=== PATIENT | female | born 1965 | race Two or more races ===

== ENCOUNTER 2016-07-17 09:46 | Day surgery (SDC) | payer MEDICAID ==
[2016-07-03 17:07] VITALS: BMI 35.2
[~2016-07-17] VITALS: Ht 157.5 cm; Wt 86.5 kg
[~2016-07-17 09:46] MED LIST: CEFAZOLIN 2 GM/50 ML (PMX) 50 ML IVPB ONE; SOD CHLORIDE 0.9% 1,000 ML IV ONE; SOD CHLORIDE 0.9% 1,000 ML IV SCH
[2016-07-17 10:46] VITALS: Ht 157.5 cm; Wt 86.5 kg
[2016-07-17 10:57] VITALS: BP 110/56; PULSE 65; RESP 16
[2016-07-17] MEDS ORDERED: MIDAZOLAM 1 MG/ML 2 ML INJ ONE (11:57)
[2016-07-17] MEDS ORDERED: PROPOFOL 20 ML ONE (11:57)
[2016-07-17] MEDS ORDERED: ROCURONIUM 50 MG INJ ONE (11:57)
[2016-07-17] MEDS ORDERED: DEXAMETHASONE 4 MG/ML 1 ML INJ ONE (11:57)
[2016-07-17] MEDS ORDERED: ONDANSETRON 4 MG INJ ONE (11:57)
[2016-07-17] MEDS ORDERED: FENTAnyl 50 MCG/ML VIAL ONE (11:57)
[2016-07-17] MEDS ORDERED: CEFAZOLIN 1 GM INJ ONE (12:01)
[2016-07-17] MEDS ORDERED: SUCCINYLCHOLINE CHLORIDE 100 MG/5 ML SYG IV ONE (12:01)
[2016-07-17] MEDS ORDERED: MEPERIDINE 25 MG INJ IV PRN (12:30)
[2016-07-17] MEDS ORDERED: KETOROLAC 30 MG INJ IV ONE (12:30)
[2016-07-17] MEDS ORDERED: MIDAZOLAM 1 MG/ML 2 ML INJ IV PRN (12:30)
[2016-07-17] MEDS ORDERED: FENTAnyl 50 MCG/ML VIAL IV PRN (12:30)
[2016-07-17] MEDS ORDERED: HYDROmorphONE (0.2 MG/ML) 10ML SYG IV PRN ×3 (12:30)
[2016-07-17] MEDS ORDERED: ONDANSETRON 4 MG INJ IV PRN (12:30)
[2016-07-17] MEDS ORDERED: HYDROCODONE/APAP (7.5/325) TAB PO PRN (13:30)
[2016-07-17 13:51] VITALS: BP 138/87; PULSE 77; RESP 18
[2016-07-17 13:54] VITALS: BP 149/74; PULSE 76; RESP 18
[2016-07-17 13:59] VITALS: BP 139/85; PULSE 74; RESP 18
[2016-07-17 14:04] VITALS: BP 135/66; RESP 18
[2016-07-17 14:15] VITALS: BP 135/81; PULSE 62; RESP 20
--- NOTE | 2016-07-17 14:18 | OPR ---
DATE OF OPERATION: 07/17/2016 PREOPERATIVE DIAGNOSIS: Right breast lesion, core biopsy positive for papilloma and need for excisi onal papilloma and need for excisional biopsy. POSTOPERATIVE DIAGNOSIS: Right breast lesion. Core biopsy positive for papilloma and need for exci sional papilloma. OPERATION PERFORMED: Right needle-directed excisional breast biopsy. ANESTHESIA: General. ANESTHESIOLOGIST: Rajiv Polanco MD SURGEON: Dwight Clay MD INDUSTRIAL HEALTH ENGINEER: Damir Ribeiro MD INDICATIONS FOR PROCEDURE: The patient is a 51-year-old female who was found on screening mammograp hy to have a suspicious lesion in the right breast. Subsequent biopsy revealed an intraductal papil katheryn and full excisional biopsy was recommended. Patient consented and was scheduled for surgery. DESCRIPTION OF PROCEDURE: On the morning of surgery, the patient presented to [facility] where she underwent localization of the lesion performed by attending radiologis Janny vázquez MD. Subsequently, she was brought to the operating theater, placed under genera l anesthesia. The right breast was prepped and draped in usual sterile fashion. A periareolar inci terri was made in the region of the localization wire from approximately the 11 o'clock through the 1 o'clock to the 4 o'clock location. Subcutaneous tissue was dissected with cautery. The skin edges were then elevated with skin hooks. Wide circumferential dissection of the breast tissue associate d with the wire took place. Specimen was removed, oriented and sent for radiographic confirmation o f capture. Capture was confirmed. Specimen was then sent for permanent pathologic analysis. The w ound was irrigated. Minimal bleeding was controlled with cautery. The skin was then reapproximated with a deep dermal layer of 4-0 Vicryl sutures in interrupted fashion, followed by final skin appro ximation with 5-0 PDS in subcuticular fashion. Benzoin and Steri-Strips were then applied. Patient tolerated procedure well. Estimated blood loss was 20 mL. There were no complications and the pat ient was transported in stable condition to the recovery room. Dictated By: DWIGHT CLAY MD TL/NTS Conf#: [id number] DID#: [id number] CC: ULISES RIBEIRO MD;*EndCC*
== END 2016-07-17 15:30 | disposition home or self-care (01) ==
LOC: SDS 09:46
PROVIDERS: ATTEND Surgery Surgical Oncology
DX: D05.11 Intraductal carcinoma in situ of right breast (principal); E11.9 Type 2 diabetes mellitus without complications; E66.9 Obesity, unspecified; Z68.34 Body mass index [BMI] 34.0-34.9, adult
CPT/HCPCS: 19120; 82962; 84703; 88307; J0330; J0690; J1100; J2250; J2405; J3010; Z7512; Z7610

== ENCOUNTER 2016-11-27 06:33 | Day surgery (SDC) | payer MEDICAID ==
[2016-11-27] VITALS (11 sets, daily range): BP systolic 90–132; BP diastolic 47–86; PULSE 52–78; RESP 14–21; Ht 157.5 cm; Wt 86.2 kg
[~2016-11-27] VITALS: Ht 157.5 cm; Wt 86.2 kg
[~2016-11-27 06:33] MED LIST changes: -SOD CHLORIDE 0.9% 1,000 ML IV ONE
[2016-11-27 07:45] LABS: ADD SCAN DIFF NO
[2016-11-27 07:49] LABS: BASOPHIL # 0.1 10^3/ul (0.0-0.1); BASOPHILS % 0.8 % (0.0-2.0); EOSINOPHILS # 0.2 10^3/ul (0.0-0.5); EOSINOPHILS % 2.5 % (0.0-7.0); LYMPHOCYTES # 2.8 10^3/ul (0.8-2.9); MEAN CORPUSCULAR HEMOGLOBIN 27.7 pg (29.0-33.0); MEAN CORPUSCULAR HGB CONC 31.7 g/dl (32.0-37.0); MEAN CORPUSCULAR VOLUME 87.2 fl (82.0-101.0); MONOCYTE # 0.5 10^3/ul (0.3-0.9); MONOCYTES % 6.4 % (0.0-11.0); NEUTROPHILS % 52.8 % (39.0-77.0); PLATELET COUNT 225 10^3/UL (140-415); RED CELL DISTRIBUTION WIDTH 13.8 % (11.5-14.5); WHITE BLOOD COUNT 7.5 10^3/ul (4.8-10.8)
[2016-11-27 08:08] LABS: INR 0.99; PROTIME 13.1 Sec (12.2-14.2)
[2016-11-27 08:09] LABS: PARTIAL THROMBOPLASTIN TIME 33.4 Sec (25.0-35.0)
[2016-11-27 08:18] LABS: ALBUMIN 4.4 g/dl (3.3-4.9); ALBUMIN/GLOBULIN RATIO 1.51; BILIRUBIN,INDIRECT 0.4 mg/dl (0-1.1); BILIRUBIN,TOTAL 0.4 mg/dl (0.2-1.3); TOTAL PROTEIN 7.3 g/dl (6.1-8.1)
[2016-11-27 08:26] LABS: CALCIUM 9.6 mg/dl (8.4-10.2); CREATININE 0.49 mg/dl (0.44-1.00); POTASSIUM 4.4 mmol/L (3.5-5.1)
[2016-11-27] MEDS ORDERED: PROPOFOL 60 ML ONE (08:38)
[2016-11-27] MEDS ORDERED: FENTAnyl 50 MCG/ML VIAL ONE ×2 (08:39→09:09)
[2016-11-27] MEDS ORDERED: MEPERIDINE 25 MG INJ IV PRN (09:00)
[2016-11-27] MEDS ORDERED: ONDANSETRON 4 MG INJ IV PRN (09:00)
[2016-11-27] MEDS ORDERED: LABETALOL HCL 20MG INJ IV PRN (09:00)
[2016-11-27] MEDS ORDERED: hydrALAzine 20 MG INJ IV PRN (09:00)
[2016-11-27] MEDS ORDERED: METOCLOPRAMIDE 10 MG INJ IV PRN (09:00)
[2016-11-27] MEDS ORDERED: EPHEDrine SULFATE 50 MG/5 ML SYG IV PRN (09:00)
[2016-11-27] MEDS ORDERED: OXYCODONE/ACETAMINOPHEN (5/325) TAB PO PRN ×2 (09:00)
[2016-11-27] MEDS ORDERED: FENTAnyl 50 MCG/ML VIAL IV PRN ×3 (09:00)
[2016-11-27] MEDS ORDERED: HYDROmorphONE (0.2 MG/ML) 10ML SYG IV PRN ×3 (09:00)
[2016-11-27] MEDS ORDERED: DIPHENHYDRAMINE 50 MG INJ IV PRN (09:00)
[2016-11-27] MEDS ORDERED: ROCURONIUM 50 MG INJ ONE (09:21)
[2016-11-27] MEDS ORDERED: NEOSTIGMINE 3 MG/3 ML SYRINGE ONE (09:21)
[2016-11-27] MEDS ORDERED: GLYCOPYRROLATE 0.4 MG INJ ONE (09:21)
--- NOTE | 2016-11-27 11:37 | RADRPT ---
PROCEDURE: XR Chest. CLINICAL INDICATION: Preop TECHNIQUE: A single AP view of the chest was obtained. COMPARISON: None. FINDINGS: No focal airspace opacification, pleural effusion or pneumothorax is seen. The cardiomediastinal si lhouette is within normal limits for size. The osseous structures are unremarkable. IMPRESSION: No radiographic evidence of acute cardiopulmonary disease. RPTAT: HH .Gloria Ambriz MD, MD Date Time Electronically viewed and signed by .Gloria Ambriz MD, on 11/27/2016 11:37 .G/
--- NOTE | 2016-11-27 16:56 | RADRPT ---
Vent Rate: 63 bpm RR Interval: 0 msec [place] Interval: 148 msec QRS Duration: 90 msec QT Interval: 462 msec QTC Interval: 472 msec P-R-T [place]: 48 - 31 - 43 degrees Normal sinus rhythm Normal ECG Electronically Signed By: Prasanth Forte [id number]
--- NOTE | 2016-12-06 08:30 | OPR ---
DATE OF OPERATION: 11/27/2016 PREOPERATIVE DIAGNOSIS: History of right breast cancer, need for re-excision, right partial mastectomy. POSTOPERATIVE DIAGNOSIS: History of right breast cancer, need for re-excision, right partial mastectomy. OPERATION PERFORMED: Right re-excision, partial mastectomy. ANESTHESIA: General. ANESTHESIOLOGIST: Dr. Argueta SURGEON: Dwight Clay MD BRICKLAYER PAVING BRICK: Alice Ribeiro MD INDICATION: The patient underwent right partial mastectomy for cancer. On final pathology, her margins were inadequate. She was counseled for the need of re-excision. She consented and was scheduled for surgery. DESCRIPTION OF PROCEDURE: The patient was brought to the operating theater and placed under general anesthesia. The right breast was prepped and draped in the usual sterile fashion. Previous surgical incisional scar was then reincised consisting of blade scalpel. Subcutaneous tissue was dissected with cautery. Skin edges were elevated with skin hooks and wide circumferential dissection of the previous biopsy cavity then took place. The specimen was then elevated, transected, oriented, and sent for permanent pathologic analysis. The wound was irrigated and minimal bleeding was controlled with cautery. The skin was reapproximated with 4-0 Vicryl sutures and interrupted deep dermal fashion, followed by final skin approximation with 5-0 PDS suture in subcuticular fashion and Benzoin and Steri- strips were then applied. The patient tolerated the procedure well. Estimated blood loss was 10 cc. There were no complications and the patient was transported in a stable condition to the recovery room where a circumferential compression dressing was applied. Dictated By: Dwight Clay MD /trey/tricia /Document#: [id number]
== END 2016-11-27 11:16 | disposition home or self-care (01) ==
LOC: SDS 06:33
PROVIDERS: ATTEND Surgery Surgical Oncology
DX: D05.11 Intraductal carcinoma in situ of right breast (principal); Z17.0 Estrogen receptor positive status [ER+]; E11.9 Type 2 diabetes mellitus without complications
CPT/HCPCS: 19301; 71010; 80053; 82962; 85025; 85610; 85730; 88307; 93005; J3010; Z7512; Z7610; J2710

== ENCOUNTER 2017-02-12 07:05 | Observation (INO) | payer MEDICAID ==
[2017-02-12] VITALS (24 sets, daily range): BP systolic 110–139; BP diastolic 54–87; PULSE 63–87; RESP 11–28; Ht 154.9 cm; Wt 87.0 kg
[~2017-02-12] VITALS: Ht 154.9 cm; Wt 87.0 kg
[~2017-02-12 07:05] MED LIST changes: -CEFAZOLIN 2 GM/50 ML (PMX) 50 ML IVPB ONE; +CEFAZOLIN 2 GM/50 ML (PMX) 50 ML IVPB SCH; +SUCCINYLCHOLINE CHLORIDE 100 MG/5 ML SYG IV ONE
[2017-02-12 08:09] LABS: BASOPHIL # 0.1 10^3/ul (0.0-0.1); BASOPHILS % 0.7 % (0.0-2.0); EOSINOPHILS # 0.2 10^3/ul (0.0-0.5); EOSINOPHILS % 2.8 % (0.0-7.0); HEMATOCRIT 40.6 % (37.0-47.0); HEMOGLOBIN 13.2 g/dl (12.0-16.0); LYMPHOCYTES # 2.2 10^3/ul (0.8-2.9); LYMPHOCYTES % 28.6 % (15.0-51.0); MEAN CORPUSCULAR HEMOGLOBIN 28.3 pg (29.0-33.0); MEAN CORPUSCULAR HGB CONC 32.5 g/dl (32.0-37.0); MEAN CORPUSCULAR VOLUME 87.1 fl (82.0-101.0); MEAN PLATELET VOLUME 11.5 fl (7.4-10.4); MONOCYTE # 0.5 10^3/ul (0.3-0.9); MONOCYTES % 6.5 % (0.0-11.0); NEUTROPHIL # 4.6 10^3/ul (1.6-7.5); NEUTROPHILS % 61.1 % (39.0-77.0); PLATELET COUNT 243 10^3/UL (140-415); RED BLOOD COUNT 4.66 10^6/ul (4.20-5.40); RED CELL DISTRIBUTION WIDTH 13.5 % (11.5-14.5); WHITE BLOOD COUNT 7.6 10^3/ul (4.8-10.8)
[2017-02-12 08:33] LABS: INR 0.95; PROTIME 12.7 Sec (12.2-14.2)
[2017-02-12 08:37] LABS: ALBUMIN 3.8 g/dl (3.3-4.9); ALBUMIN/GLOBULIN RATIO 1.18; BILIRUBIN,INDIRECT 0.6 mg/dl (0-1.1); BILIRUBIN,TOTAL 0.6 mg/dl (0.2-1.3)
[2017-02-12 08:43] LABS: CALCIUM 9.3 mg/dl (8.4-10.2); CREATININE 0.41 mg/dl (0.44-1.00); POTASSIUM 4.5 mmol/L (3.5-5.1)
[2017-02-12] MEDS ORDERED: LIDOCAINE 2% (SDV) 5 ML INJ ONE (09:03)
[2017-02-12] MEDS ORDERED: PROPOFOL 20 ML ONE (09:04)
[2017-02-12] MEDS ORDERED: MIDAZOLAM 1 MG/ML 2 ML INJ ONE (09:04)
[2017-02-12] MEDS ORDERED: CEFAZOLIN 1 GM INJ ONE (09:06)
[2017-02-12] MEDS ORDERED: FENTAnyl 50 MCG/ML VIAL ONE (09:20)
[2017-02-12] MEDS ORDERED: ONDANSETRON 4 MG INJ ONE (09:27)
[2017-02-12] MEDS ORDERED: FAMOTIDINE 20 MG INJ ONE (09:28)
--- NOTE | 2017-02-12 10:45 | SIPON ---
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 Aldo Wiggins Anesthesia: general Estimated blood loss: 10 - 50 ml's Transfusion Required none Specimen Right breast and level 1 axillary nodes Grafts/Implants none Complications none MANNIE GOMEZ MD Feb 12, 2017 10:45
[2017-02-12] MEDS ORDERED: ACETAMINOPHEN 1000MG/100ML IV 100 ML IVPB PRN (11:00)
[2017-02-12] MEDS ORDERED: ONDANSETRON 4 MG INJ IV PRN (11:00)
[2017-02-12] MEDS ORDERED: morphine 2 MG INJ IV PRN (11:00)
[2017-02-12] MEDS ORDERED: MEPERIDINE 25 MG INJ IV PRN (11:00)
[2017-02-12] MEDS ORDERED: HYDROmorphONE (0.2 MG/ML) 10ML SYG IV PRN ×2 (11:00)
[2017-02-12] MEDS ORDERED: DIPHENHYDRAMINE 50 MG INJ IV PRN (11:00)
--- NOTE | 2017-02-12 11:00 | OPR ---
DATE OF OPERATION: 02/12/2017 PREOPERATIVE DIAGNOSIS: Extensive ductal carcinoma in situ, right breast. POSTOPERATIVE DIAGNOSIS: Extensive ductal carcinoma in situ, right breast. PROCEDURE: Right modified radical mastectomy with level 1 dissection. ANESTHESIA: General. ANESTHESIOLOGIST: . SURGEON: Dwight Clay MD. BAT CARRIER: Isma Hickman MD INDICATIONS FOR PROCEDURE: The patient is a 51-year-old female, who underwent screening mammography was found to have suspicious microcalcifications. She underwent excisional biopsy, which revealed ductal carcinoma with positive margins. She had 3 additional attempts at re-excision and the margins remain positive. She then was counseled as to the need for mastectomy. She consented and was scheduled for surgery. OPERATIVE PROCEDURE: The patient was brought to the operating theater, placed under general endotracheal tube anesthesia. The right breast axillary region was prepped and draped in usual sterile fashion. A planned elliptical incision was then made with marking pen around the nipple areolar complex. It is carried out with 15 blade scalpel. Subcutaneous tissue was dissected with cautery. The skin edges were then elevated with Allis-Josafat skin clamps in sequential fashion. Using cautery, skin flaps were developed first superiorly to the clavicle, then medially to the sternal border, inferiorly to the inframammary fold and then laterally to latissimus dorsi muscle was identified throughout its course. Mastectomy then took place from medial to lateral using cautery at the border of the pectoralis major muscle. The pectoralis minor muscle was identified. Due to the extensive nature of the DCIS and the chance for invasion Dr. Clay made the decision to resect some level 1 lymph nodes. The clavipectoral fascia was incised. Blunt dissection was used to identify the long thoracic nerve, which was kept out of harm's way. Level 1 node bearing tissue was then resected EN bloc with the breast using LigaSure device. Final connective tissue attachments to the latissimus dorsi muscle were then transected with cautery. Specimen was removed, oriented, and sent for permanent pathologic analysis. The wound was irrigated. Minimal bleeding was controlled with cautery. Two number 10 flat Joel- Ferris drains were then brought through the right mid axillary line. One was cut to size and laid within the axilla. The other was laid over the pectorals major muscle. Both drains were secured in place with 2-0 nylon suture in the standard fashion and the skin was then reapproximated with skin fabricio. The patient tolerated procedure well. ESTIMATED BLOOD LOSS: Was approximately 50 mL. COMPLICATIONS: There were no complications. The patient was transported in stable condition to recovery room, where a circumferential compression dressing was applied. Dictated By: Dwight Clay MD /trey/sarbjit /Document#: [id number]
--- NOTE | 2017-02-12 13:12 | HP ---
DATE OF ADMISSION: 02/12/2017 HISTORY OF PRESENT ILLNESS: The patient is a 61-year-old female, who was found a suspicious microcalcification on screening mammography. The patient subsequently underwent excisional biopsy, which revealed ductal carcinoma with positive margins. The patient had additional attempt to re-excision, however, margin remain positive and patient was brought to the hospital and underwent a right modified radical mastectomy with level [address] Clay. Postoperatively, the patient experienced moderate pain and patient will be admitted for further evaluation and further management. PAST MEDICAL HISTORY: Positive for diabetes. The patient stated that she used to take metformin, however, currently is off metformin. PAST SURGICAL HISTORY: Status post right breast biopsy and multiple attempts at re-excision, partial mastectomy, and C- sections x2. FAMILY HISTORY: Negative for breast and ovarian cancer. SOCIAL HISTORY: Patient lives at home with her family. 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 The patient denies any tobacco use. Denies any alcohol use. Denies any illicit drug use. ALLERGIES: NO KNOWN ALLERGIES. HOME MEDICATIONS: No active prescriptions. REVIEW OF SYSTEMS: A 12 point review of system is negative unless what is mentioned in HPI. PHYSICAL EXAMINATION: GENERAL: Well-developed, well-nourished female, awake and alert. VITAL SIGNS: Temperature is 98.7, pulse is 76, blood pressure 123/75, respiratory 12, and oxygen saturation 100 percent on 3 L nasal cannula. HEENT: Head is atraumatic, normocephalic. Pupils equal, round, reactive to light and accommodation. Oral mucosa is pink and moist. NECK: Supple. No cervical lymphadenopathy. No thyromegaly. CHEST: Lungs clear bilaterally. There is no rhonchi, wheezes, rales noted. CARDIOVASCULAR: Normal S1, S2. No murmurs, gallops, clicks, or rubs noted. Chest the patient has a right breast dressing with axillary MILTON x 2. Dressing is dry, clean, and intact. ABDOMEN: Protuberant, soft, nondistended, nontender. Bowel sounds present. EXTREMITIES: No edema, clubbing, cyanosis. Pulses equal bilaterally 2 plus. SKIN: No rash. No petechiae noted. NEUROLOGICAL: Patient is awake, alert, and oriented times 3. No focal deficits noted. Motor strength is 5/5 in all extremities. LABORATORY DATA: On admission, CBC white blood cells 7.6, hemoglobin 13.2, hematocrit 40.6, and platelets 243. Chemistry: Sodium is 140, potassium 4.5, chloride 106, carbon dioxide 30, anion gap 9, BUN is 18, creatinine 0.41, glucose 116, AST 21, ALT is 34, alkaline phosphate is 107. PT 12.7, INR is 0.95, and APTT 31.0. ASSESSMENT AND PLAN: 1. 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 Continue Tylenol, and morphine p.r.n. for pain, Zofran p.r.n. for nausea. Continue postoperative antibiotics and IV fluids. Incentive spirometer every 1 hour while patient is awake. 2. History of diabetes. We will continue to monitor sugar. 3. Obesity. Continue sequential compression device for deep venous thrombosis prophylaxis. Further recommendations based on clinical course. Plan of care discussed with Dr. Nieves. Dictated By: Germania Son NP /trey/pamela /Document#: [id number]
[2017-02-12] MEDS: D5W-0.45 NACL + KCL 20 MEQ 1,000 ML IV SCH ×3 (13:23→22:20)
--- NOTE | 2017-02-12 16:37 | RADRPT ---
Vent Rate: 59 bpm RR Interval: 0 msec [place] Interval: 156 msec QRS Duration: 86 msec QT Interval: 426 msec QTC Interval: 421 msec P-R-T [place]: 38 - 17 - 34 degrees Sinus bradycardia Anterolateral infarct , age undetermined Abnormal ECG Electronically Signed By: Prasanth Forte [id number]
[2017-02-13] VITALS: BP_SYST 113; BP_SYST 125; BP_DIAS 60; BP_DIAS 65; PULSE 70; RESP 18; RESP 19
[2017-02-13 04:00] VITALS: BP 117/64; RESP 19
[2017-02-13] MEDS: D5W-0.45 NACL + KCL 20 MEQ 1,000 ML IV SCH ×3 (06:14→17:45)
[2017-02-13 08:03] VITALS: BP 114/65; RESP 18
[2017-02-13 08:37] LABS: BASOPHILS % 0.4 % (0.0-2.0); EOSINOPHILS # 0.2 10^3/ul (0.0-0.5); EOSINOPHILS % 2.1 % (0.0-7.0); HEMATOCRIT 37.8 % (37.0-47.0); HEMOGLOBIN 12.1 g/dl (12.0-16.0); LYMPHOCYTES # 2.3 10^3/ul (0.8-2.9); LYMPHOCYTES % 25.6 % (15.0-51.0); MEAN CORPUSCULAR HEMOGLOBIN 28.1 pg (29.0-33.0); MEAN CORPUSCULAR VOLUME 87.9 fl (82.0-101.0); MEAN PLATELET VOLUME 12.5 fl (7.4-10.4); MONOCYTE # 0.6 10^3/ul (0.3-0.9); MONOCYTES % 6.7 % (0.0-11.0); NEUTROPHIL # 5.9 10^3/ul (1.6-7.5); NEUTROPHILS % 64.9 % (39.0-77.0); PLATELET COUNT 207 10^3/UL (140-415); WHITE BLOOD COUNT 9.1 10^3/ul (4.8-10.8)
[2017-02-13] MEDS ORDERED: HYDROCODONE/APAP (5/325) TAB PO PRN (09:00)
[2017-02-13 09:02] LABS: CALCIUM 8.7 mg/dl (8.4-10.2); CREATININE 0.42 mg/dl (0.44-1.00)
[2017-02-13] MEDS: INSULIN ASPART [NOVOLOG] 3 ML PEN SC SCH ×3 (12:00→21:00)
--- NOTE | 2017-02-13 12:06 | PN ---
Date/Time of Note Date/Time of Note DATE: 02/13/17 TIME: 12:00 Assessment/Plan VTE Prophylaxis VTE Prophylaxis Intervention: SCD's Lines/Catheters IV Catheter Type (from Nrsg): Peripheral IV Assessment/Plan Assessment/Plan 1. 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 MILTON drain noted - per surgery - Tylenol, and morphine p.r.n. for pain, Zofran p.r.n. for nausea. - Continue postoperative antibiotics and IV fluids. - Incentive spirometer every 1 hour while patient is awake. 2. History of diabetes. - Glycemic control - We will continue to monitor sugar. 3. Obesity. - weight management - dietary consult 4. sequential compression device for deep venous thrombosis prophylaxis. Further recommendations based on clinical course. Plan of care discussed with Dr. Nieves. Subjective 24 Hr Interval Summary Free Text/Dictation afebrile, surgery follows. right breast MILTON intact.patient stated she was on Metformin, but its dcd as per her PMD, She is fu with her PMD x 2 weeks.dw staff - no new issue reported. Cardiovascular: no complaints Gastrointestinal: no complaints Genitourinary: no complaints Musculoskeletal: no complaints Exam/Review of Systems Vital Signs Vitals Vital Signs Date Time Temp Pulse Resp B/P Pulse Ox O2 Delivery O2 Flow Rate FiO2 02/13/17 08:03 98.0 70 18 114/65 95 02/13/17 00:00 Room Air 02/12/17 11:09 3.0 Intake and Output 02/12/17 02/12/17 02/13/17 15:00 23:00 07:00 Intake Total 1600 ml 2070 ml 2300 ml Output Total 101 ml 160 ml 80 ml Balance 1499 ml 1910 ml 2220 ml Exam Constitutional: alert, oriented, well developed Respiratory: clear to auscultation, normal air movement Cardiovascular: nl pulses, regular rate and rhythm Gastrointestinal: non-tender, soft Musculoskeletal: nl extremities to inspection Results Result Diagram: 02/13/17 0823 02/13/17 0730 Results 24 hrs Laboratory Tests Test 02/12/17 16:53 02/13/17 06:08 02/13/17 07:30 02/13/17 08:23 Bedside Glucose 127 Lab Scanned Report LAB Sodium Level 139 Potassium Level 4.0 Chloride Level 109 Carbon Dioxide Level 27 Anion Gap 7 L Blood Urea Nitrogen 7 # Creatinine 0.42 L Glucose Level 119 Calcium Level 8.7 White Blood Count 9.1 Red Blood Count 4.30 Hemoglobin 12.1 Hematocrit 37.8 Mean Corpuscular Volume 87.9 Mean Corpuscular Hemoglobin 28.1 L Mean Corpuscular Hemoglobin Concent 32.0 Red Cell Distribution Width 14.0 Platelet Count 207 Mean Platelet Volume 12.5 H Neutrophils % 64.9 Lymphocytes % 25.6 Monocytes % 6.7 Eosinophils % 2.1 Basophils % 0.4 Nucleated Red Blood Cells % 0.0 Neutrophils # 5.9 Lymphocytes # 2.3 Monocytes # 0.6 Eosinophils # 0.2 Basophils # 0.0 Nucleated Red Blood Cells # 0.0 Medications Medications Current Medications Ondansetron HCl 4 mg 4 mg Q6H PRN IV NAUSEA AND/OR VOMITING; Start 02/12/17 at 11:00 Potassium Chloride/Dextrose/ Sod Cl (D5-1/2ns + KCl 20 Meq) 1,000 ml @ 125 mls/ hr Q8H IV Last administered on 02/13/17 06:14; Admin Dose 125 MLS/HR; Start at 10:45 Morphine Sulfate 2 mg 2 mg Q1H PRN IV PAIN; Start 02/12/17 at 11:00 Acetaminophen (Ofirmev 1000mg/ 100ml Iv) 100 ml @ 400 mls/hr Q6H PRN IVPB PAIN Last administered on 02/12/17 14:21; Admin Dose 400 MLS/HR; Start at 11:00 Acetaminophen/ Hydrocodone Bitart ([place] (5/325)) 1 tab Q4H PRN PO PAIN; Start 02/13/17 at 09:00 GONZALES CASTORENA Feb 13, 2017 12:06
[2017-02-13] MEDS ORDERED: GLUCOSE GEL 15 GRAM TUBE PO PRN ×2 (12:30)
[2017-02-13] MEDS ORDERED: GLUCOSE GEL 15 GRAM TUBE BUCCAL PRN (12:30)
[2017-02-13] MEDS ORDERED: DEXTROSE 50% 50 ML SYRINGE IV PRN ×2 (12:30)
[2017-02-13] MEDS ORDERED: GLUCAGON 1 MG INJ IM PRN (12:30)
[2017-02-13 14:00] VITALS: BP 123/63; RESP 20
[2017-02-13 20:19] VITALS: BP 120/61; RESP 18
[2017-02-14] MEDS: D5W-0.45 NACL + KCL 20 MEQ 1,000 ML IV SCH ×3 (00:17→10:45)
[2017-02-14] MEDS ORDERED: ACCU-CHEK XX SCH ×2 (02:00)
[2017-02-14 02:58] VITALS: BP 117/59; RESP 17
[2017-02-14 06:20] LABS: BASOPHILS % 0.5 % (0.0-2.0); EOSINOPHILS # 0.3 10^3/ul (0.0-0.5); EOSINOPHILS % 3.2 % (0.0-7.0); HEMATOCRIT 37.5 % (37.0-47.0); HEMOGLOBIN 12.1 g/dl (12.0-16.0); LYMPHOCYTES # 2.3 10^3/ul (0.8-2.9); LYMPHOCYTES % 28.8 % (15.0-51.0); MEAN CORPUSCULAR HEMOGLOBIN 28.4 pg (29.0-33.0); MEAN CORPUSCULAR HGB CONC 32.3 g/dl (32.0-37.0); MEAN PLATELET VOLUME 11.8 fl (7.4-10.4); MONOCYTE # 0.6 10^3/ul (0.3-0.9); MONOCYTES % 7.3 % (0.0-11.0); NEUTROPHIL # 4.7 10^3/ul (1.6-7.5); NEUTROPHILS % 59.9 % (39.0-77.0); PLATELET COUNT 213 10^3/UL (140-415); RED BLOOD COUNT 4.26 10^6/ul (4.20-5.40); RED CELL DISTRIBUTION WIDTH 13.6 % (11.5-14.5); WHITE BLOOD COUNT 7.8 10^3/ul (4.8-10.8)
[2017-02-14 06:51] LABS: CALCIUM 8.7 mg/dl (8.4-10.2); CREATININE 0.43 mg/dl (0.44-1.00); POTASSIUM 4.1 mmol/L (3.5-5.1)
[2017-02-14] MEDS: INSULIN ASPART [NOVOLOG] 3 ML PEN SC SCH ×2 (08:00→12:00)
[2017-02-14 08:02] VITALS: BP 110/63; RESP 18
--- NOTE | 2017-02-14 11:46 | PN ---
Date/Time of Note Date/Time of Note DATE: 02/14/17 TIME: 11:43 Assessment/Plan VTE Prophylaxis VTE Prophylaxis Intervention: SCD's Lines/Catheters IV Catheter Type (from Nrsg): Peripheral IV Assessment/Plan Assessment/Plan 1. 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 MILTON drain noted - per surgery - Tylenol, and morphine p.r.n. for pain, Zofran p.r.n. for nausea. - Continue postoperative antibiotics and IV fluids. - Incentive spirometer every 1 hour while patient is awake. 2. History of diabetes. - Glycemic control - We will continue to monitor sugar. 3. Obesity. - weight management - dietary consult 4. sequential compression device for deep venous thrombosis prophylaxis. Further recommendations based on clinical course. Plan of care discussed with Dr. Nieves. Subjective 24 Hr Interval Summary Free Text/Dictation afebrile, surgery follows. right breast MILTON intact- still draining .; plan to dc am when cleared by surgery; dw staff Respiratory: no complaints Cardiovascular: no complaints Genitourinary: no complaints Musculoskeletal: no complaints Exam/Review of Systems Vital Signs Vitals Vital Signs Date Time Temp Pulse Resp B/P Pulse Ox O2 Delivery O2 Flow Rate FiO2 02/14/17 08:02 98.4 67 18 110/63 96 02/13/17 00:00 Room Air 02/12/17 11:09 3.0 Intake and Output 02/13/17 02/13/17 02/14/17 15:00 23:00 07:00 Intake Total 950 ml 1870 ml Output Total 80 ml Balance 870 ml 1870 ml Exam Constitutional: alert, oriented, well developed Respiratory: clear to auscultation, normal air movement Cardiovascular: nl pulses, regular rate and rhythm Gastrointestinal: non-tender, soft Musculoskeletal: nl extremities to inspection Extremities: normal pulses Neurological: nl mental status, nl speech Skin: other (sp right modified radical mastectomy- DDI. Pressure dressin noted. ) Results Result Diagram: 02/14/17 0546 02/14/17 0546 Results 24 hrs Laboratory Tests Test 02/13/17 12:03 02/13/17 17:36 02/13/17 20:04 02/14/17 05:46 Bedside Glucose 113 118 127 White Blood Count 7.8 Red Blood Count 4.26 Hemoglobin 12.1 Hematocrit 37.5 Mean Corpuscular Volume 88.0 Mean Corpuscular Hemoglobin 28.4 L Mean Corpuscular Hemoglobin Concent 32.3 Red Cell Distribution Width 13.6 Platelet Count 213 Mean Platelet Volume 11.8 H Neutrophils % 59.9 Lymphocytes % 28.8 Monocytes % 7.3 Eosinophils % 3.2 Basophils % 0.5 Nucleated Red Blood Cells % 0.0 Neutrophils # 4.7 Lymphocytes # 2.3 Monocytes # 0.6 Eosinophils # 0.3 Basophils # 0.0 Nucleated Red Blood Cells # 0.0 Sodium Level 138 Potassium Level 4.1 Chloride Level 108 Carbon Dioxide Level 29 Anion Gap 5 L Blood Urea Nitrogen 6 L Creatinine 0.43 L Glucose Level 126 Calcium Level 8.7 Test 02/14/17 08:11 Bedside Glucose 109 Medications Medications Current Medications Ondansetron HCl 4 mg 4 mg Q6H PRN IV NAUSEA AND/OR VOMITING; Start 02/12/17 at 11:00 Potassium Chloride/Dextrose/ Sod Cl (D5-1/2ns + KCl 20 Meq) 1,000 ml @ 125 mls/ hr Q8H IV Last administered on 02/14/17 08:51; Admin Dose 125 MLS/HR; Start at 10:45 Morphine Sulfate 2 mg 2 mg Q1H PRN IV PAIN; Start 02/12/17 at 11:00 Acetaminophen (Ofirmev 1000mg/ 100ml Iv) 100 ml @ 400 mls/hr Q6H PRN IVPB PAIN Last administered on 02/12/17 14:21; Admin Dose 400 MLS/HR; Start at 11:00 Acetaminophen/ Hydrocodone Bitart ([place] (5/325)) 1 tab Q4H PRN PO PAIN; Start 02/13/17 at 09:00 Diagnostic Test (Pha) (Accu-Chek) 1 ea 02 XX ; Start 02/14/17 at 02:00 Diagnostic Test (Pha) (Accu-Chek) 1 ea 02 XX ; Start 02/14/17 at 02:00 Miscellaneous Information 1 ea NOTE XX ; Start 02/13/17 at 12:30 Glucose (Glutose) 15 gm Q15M PRN PO DECREASED GLUCOSE; Start 02/13/17 at 12:30 Glucose (Glutose) 22.5 gm Q15M PRN PO DECREASED GLUCOSE; Start 02/13/17 at 12: 30 Dextrose (D50w Syringe) 25 ml Q15M PRN IV DECREASED GLUCOSE; Start 02/13/17 at 12:30 Dextrose (D50w Syringe) 50 ml Q15M PRN IV DECREASED GLUCOSE; Start 02/13/17 at 12:30 Glucagon (Glucagen) 1 mg Q15M PRN IM DECREASED GLUCOSE; Start 02/13/17 at 12:30 Glucose (Glutose) 15 gm Q15M PRN BUCCAL DECREASED GLUCOSE; Start 02/13/17 at 12 :30 GONZALES CASTORENA Feb 14, 2017 11:46
--- NOTE | 2017-02-14 12:07 | PN ---
Date/Time of Note Date/Time of Note DATE: 02/14/17 TIME: 12:01 Assessment/Plan VTE Prophylaxis VTE Prophylaxis Intervention: ambulation Lines/Catheters [facility] Peripheral IV Assessment/Plan Assessment/Plan 51 years old female status post right modified radical mastectomy with level on axillary dissection. Extensive DCIS. There is 24-hour that drains to drain totally 240 cc semi-bloody fluid. Last 24 hours the drains have drained 80 cc the same semi-bloody. She has a stable hemoglobin and hematocrit stable therefore patient can be discharged home today to be followed by Dr. Raman in his office. Patient's daughter was instructed to care of Joel-Ferris drains. Subjective 24 Hr Interval Summary Free Text/Dictation No complain no fever minimal pain. Exam/Review of Systems Vital Signs Vitals Vital Signs Date Time Temp Pulse Resp B/P Pulse Ox O2 Delivery O2 Flow Rate FiO2 02/14/17 08:02 98.4 67 18 110/63 96 02/13/17 00:00 Room Air 02/12/17 11:09 3.0 Intake and Output 02/13/17 02/13/17 02/14/17 15:00 23:00 07:00 Intake Total 950 ml 1870 ml Output Total 80 ml Balance 870 ml 1870 ml Exam Postop day #2 is status post right modified radical mastectomy. No signs stable afebrile. Globin hematocrit is stable. Impression placed first postop day 240 cc semi-bloody nature reason patient was kept another day. in past 24 hour at both drains together have drained 80 cc. Dressing is intact. Results Result Diagram: 02/14/17 0546 02/14/17 0546 Results 24 hrs Laboratory Tests Test 02/13/17 12:03 02/13/17 17:36 02/13/17 20:04 02/14/17 05:46 Bedside Glucose 113 118 127 White Blood Count 7.8 Red Blood Count 4.26 Hemoglobin 12.1 Hematocrit 37.5 Mean Corpuscular Volume 88.0 Mean Corpuscular Hemoglobin 28.4 L Mean Corpuscular Hemoglobin Concent 32.3 Red Cell Distribution Width 13.6 Platelet Count 213 Mean Platelet Volume 11.8 H Neutrophils % 59.9 Lymphocytes % 28.8 Monocytes % 7.3 Eosinophils % 3.2 Basophils % 0.5 Nucleated Red Blood Cells % 0.0 Neutrophils # 4.7 Lymphocytes # 2.3 Monocytes # 0.6 Eosinophils # 0.3 Basophils # 0.0 Nucleated Red Blood Cells # 0.0 Sodium Level 138 Potassium Level 4.1 Chloride Level 108 Carbon Dioxide Level 29 Anion Gap 5 L Blood Urea Nitrogen 6 L Creatinine 0.43 L Glucose Level 126 Calcium Level 8.7 Test 02/14/17 08:11 Bedside Glucose 109 Medications Medications Current Medications Ondansetron HCl 4 mg 4 mg Q6H PRN IV NAUSEA AND/OR VOMITING; Start 02/12/17 at 11:00 Potassium Chloride/Dextrose/ Sod Cl (D5-1/2ns + KCl 20 Meq) 1,000 ml @ 125 mls/ hr Q8H IV Last administered on 02/14/17 08:51; Admin Dose 125 MLS/HR; Start at 10:45 Morphine Sulfate 2 mg 2 mg Q1H PRN IV PAIN; Start 02/12/17 at 11:00 Acetaminophen (Ofirmev 1000mg/ 100ml Iv) 100 ml @ 400 mls/hr Q6H PRN IVPB PAIN Last administered on 02/12/17 14:21; Admin Dose 400 MLS/HR; Start at 11:00 Acetaminophen/ Hydrocodone Bitart ([place] (5/325)) 1 tab Q4H PRN PO PAIN; Start 02/13/17 at 09:00 Diagnostic Test (Pha) (Accu-Chek) 1 ea 02 XX ; Start 02/14/17 at 02:00 Diagnostic Test (Pha) (Accu-Chek) 1 ea 02 XX ; Start 02/14/17 at 02:00 Miscellaneous Information 1 ea NOTE XX ; Start 02/13/17 at 12:30 Glucose (Glutose) 15 gm Q15M PRN PO DECREASED GLUCOSE; Start 02/13/17 at 12:30 Glucose (Glutose) 22.5 gm Q15M PRN PO DECREASED GLUCOSE; Start 02/13/17 at 12: 30 Dextrose (D50w Syringe) 25 ml Q15M PRN IV DECREASED GLUCOSE; Start 02/13/17 at 12:30 Dextrose (D50w Syringe) 50 ml Q15M PRN IV DECREASED GLUCOSE; Start 02/13/17 at 12:30 Glucagon (Glucagen) 1 mg Q15M PRN IM DECREASED GLUCOSE; Start 02/13/17 at 12:30 Glucose (Glutose) 15 gm Q15M PRN BUCCAL DECREASED GLUCOSE; Start 02/13/17 at 12 :30 CRISSY DRIVER MD Feb 14, 2017 12:06
--- NOTE | 2017-02-14 15:08 | PDOCDIS ---
Discharge Instructions CONDITION Patient Condition: Stable HOME CARE INSTRUCTIONS: Special Diet: Regular ACTIVITY: Activity Restrictions: Slowly Increase Activity Rest between Activity Avoid heavy lifting FOLLOW UP/APPOINTMENTS Follow-up Plan FU with Primary MD x 1 week Fu with Surgery as recommended Call 911 or go to the nearest hospital if symptoms get worse GONZALES CASTORENA Feb 14, 2017 15:08
--- NOTE | 2017-02-14 15:09 | DS ---
Date/Time of Note Date/Time of Note DATE: 02/14/17 TIME: 15:09 Discharge Summary Admission/Discharge Info Admit Date/Time Feb 12, 2017 at 13:55 Discharge Date/Time Discharge Diagnosis 1. 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 MILTON drain noted 2. History of diabetes. 3. Obesity. Patient Condition: Stable Hospital Course The patient is a 61-year-old female patient was admitted sp right modified radical mastectomy with level [address] Clay. Her screening mammography showed suspicious microcalcification and he patient subsequently had an excisional biopsy. Her biopsy resulted as ductal carcinoma with positive margins.An additional attempt for her re-excision, was unsuccessful however, margin remain positive and patient had aright modified radical mastectomy. Postoperatively, the patient experienced moderate pain and patient will be admitted for further evaluation and further management. Constitutional: nad, vss, alert, oriented, well developed Respiratory: clear to auscultation, normal air movement Cardiovascular: nl pulses, regular rate and rhythm Gastrointestinal: non-tender, soft Musculoskeletal: nl extremities to inspection Extremities: normal pulses Neurological: nl mental status, nl speech Skin: other (sp right modified radical mastectomy- DDI. Pressure dressin noted. ) Once stable, cleared by surgery, patient was dicharged home with verbalized dc instructions and FU plan Dw Dr Hwang/staff/patient Home Meds No Active Prescriptions or Reported Meds Follow-up Plan FU with Primary MD x 1 week Fu with Surgery as recommended Call 911 or go to the nearest hospital if symptoms get worse Primary Care Provider Not On Staff Doctor Time spent on discharge: > 30 minutes Pending Labs Laboratory Tests Test 02/13/17 17:36 02/13/17 20:04 02/14/17 05:46 02/14/17 08:11 Bedside Glucose 118mg/dL (70-220) 127mg/dL (70-220) 109mg/dL (70-220) White Blood Count 7.810^3/ul (4.8-10.8) Red Blood Count 4.2610^6/ul (4.20-5.40) Hemoglobin 12.1g/dl (12.0-16.0) Hematocrit 37.5% (37.0-47.0) Mean Corpuscular Volume 88.0fl (82.0-101.0) Mean Corpuscular Hemoglobin 28.4pg (29.0-33.0) Mean Corpuscular Hemoglobin Concent 32.3g/dl (32.0-37.0) Red Cell Distribution Width 13.6% (11.5-14.5) Platelet Count 00825^3/UL (140-415) Mean Platelet Volume 11.8fl (7.4-10.4) Neutrophils % 59.9% (39.0-77.0) Lymphocytes % 28.8% (15.0-51.0) Monocytes % 7.3% (0.0-11.0) Eosinophils % 3.2% (0.0-7.0) Basophils % 0.5% (0.0-2.0) Nucleated Red Blood Cells % 0.0/100WBC (0.0-0.0) Neutrophils # 4.710^3/ul (1.6-7.5) Lymphocytes # 2.310^3/ul (0.8-2.9) Monocytes # 0.610^3/ul (0.3-0.9) Eosinophils # 0.310^3/ul (0.0-0.5) Basophils # 0.010^3/ul (0.0-0.1) Nucleated Red Blood Cells # 0.010^3/ul (0.0-0.0) Sodium Level 138mmol/L (135-144) Potassium Level 4.1mmol/L (3.5-5.1) Chloride Level 108mmol/L (97-110) Carbon Dioxide Level 29mmol/L (21-31) Anion Gap 5 (8-16) Blood Urea Nitrogen 6mg/dl (7-20) Creatinine 0.43mg/dl (0.44-1.00) Glucose Level 126mg/dl (70-220) Calcium Level 8.7mg/dl (8.4-10.2) Test 02/14/17 12:05 Bedside Glucose 105mg/dL (70-220) GONZALES CASTORENA Feb 14, 2017 15:09
--- NOTE | 2017-02-15 07:20 | PN ---
DATE: 02/13/2017 SUBJECTIVE: Postoperative day number 1, status post right modified radical mastectomy. No complaints. Minimal pain. OBJECTIVE: GENERAL: Awake, alert, oriented times 3. VITAL SIGNS: Temperature 99.1, heart rate 73, regular, respirations 19, blood pressure 107/64, saturation 95 percent on room air. LABORATORY DATA: WBC 9000, neutrophils 64 percent, hemoglobin 12.1, hematocrit 37.8. Chemistry within normal limits. The patient has 2 Joel-Ferris's. According to the computer chart . 2. Has drained 250 mm from time of operation till 7 a.m. today and 7 a.m. to 2 p.m. today, both 3 60 cc which is sanguinous in color and nature. The dressing is intact. ASSESSMENT AND PLAN: A 51-year-old, who underwent modified radical mastectomy for extensive ductal carcinoma in situ yesterday, and since that time, the patient has drained 370 cc of sanguinous fluid from 2 Joel-Ferris's. I would like to keep the patient 1 more night and make sure that the hemoglobin does not drop and she is not bleeding too much and hopefully we can send her home tomorrow. Dictated By: Aldo Wiggins MD /trey/tricia /Document#: [id number] ANTHONY
== END 2017-02-14 16:20 | disposition home or self-care (01) ==
LOC: SDS 07:05 → PP2 12:55 → SDS 23:01
PROVIDERS: ADMIT Surgery Surgical Oncology; ATTEND Surgery Surgical Oncology
DX: D05.11 Intraductal carcinoma in situ of right breast (principal); E11.9 Type 2 diabetes mellitus without complications; E66.9 Obesity, unspecified; Z68.36 Body mass index [BMI] 36.0-36.9, adult
CPT/HCPCS: 19307; 80048; 80053; 82962; 83036; 84703; 85025; 85610; 85730; 88307; 93005; 96360; 96361; 96365; J0131; J0690; J1170; J1815; J2250; J2405; J3010; J3480; J7030; Z7500; Z7512; Z7610; G0378; J7999